=== PATIENT | female | born 1965 | race Caucasian/White ===

== ENCOUNTER 2017-01-24 10:06 | Day surgery (SDC) | payer OTHER ==
[2017-01-23 11:22] VITALS: BMI 20.9
--- NOTE | 2017-01-24 11:07 | RAD ---
CERVICAL SPINE 2 VIEWS FLEXION AND EXTENSION: FINDINGS: The vertebral bodies are normal in height. Disk spaces appear well preserved. I do not appreciate a ny abnormal motion in flexion or extension. IMPRESSION: Unremarkable flexion and extension views. POS: [facility]
--- NOTE | 2017-01-24 11:17 | RAD ---
LUMBAR SPINE SERIES 2 VIEWS: (FLEXION AND EXTENSION) DATE: 01/24/17 HISTORY: Back pain. FINDINGS: Vertebral bodies maintain normal height. There is some osteophytic change without significant disc na rrowing. Limited motion in flexion and extension shows no abnormal changes. IMPRESSION: Minimal arthritic changes of the spine. POS: [facility]
[2017-01-24] MEDS ORDERED: Midazolam HCl 2 mg/2 ml Vial ONE ×2 (11:34→11:42)
[2017-01-24] MEDS ORDERED: Fentanyl 100 MCG/2 ML VIAL ONE ×2 (11:34)
[2017-01-24] MEDS ORDERED: Propofol 500 MG/50 ML VIAL ONE (11:35)
--- NOTE | 2017-01-24 13:40 | MRI ---
MRI OF LUMBAR SPINE PERFORMED WITHOUT CONTRAST ENHANCEMENT: HISTORY: Back pain, left leg pain, and numbness. FINDINGS: Vertebral bodies are normal in height. There are some disk desiccation changes at L2-3, L3-4, and L4 -5 without disk narrowing. There is no significant periaortic adenopathy. There is a T1 and T2 small hyperintense lesion involv ing the mid pole of the left kidney, possibly a hemorrhagic cyst but ultrasound would be recommended for confirmation. It is along the lateral cortex. T12-L1: Unremarkable. L1-2: Unremarkable. L2-3: Unremarkable. L3-4: Unremarkable. L4-5: Some mild facet hypertrophic changes without canal or foraminal stenosis. L5-S1: Unremarkable. IMPRESSION: 1. No evidence of disk herniation, canal, or foraminal stenosis. 2. Approximately 1 cm T! and T2 hyperintense lesion involving the lateral cortex of the mid to upper pole region of the left kidney, probably hemorrhagic cyst. Further characterization with ultrasound would be recommended. POS: [facility]
--- NOTE | 2017-01-24 13:48 | MRI ---
MRI CERVICAL SPINE NONCONTRAST: HISTORY: Neck pain with radiculopathy. FINDINGS: Vertebral body heights and alignment are maintained. Bone marrow signal is within normal limits. C2-3: The central canal and neural foramen are patent. C3-4: Uncovertebral and facet hypertrophy result in moderate right and mild left foraminal stenoses. C4-5: Minimal posterior osteophyte/disk complex is present. There is uncovertebral and facet hypert rophy. The neural foramen remain patent. C5-6: Mild posterior osteophyte/disk complex is present with minimal effacement of the thecal sac. The neural foramina remain patent. C6-7: Posterior osteophyte/disk complex effaces the ventral aspect of the thecal sac. Circumferenti al degenerative changes result in moderate to severe central canal stenosis. There is flattening of the ventral aspect of the spinal cord. No abnormal signal is apparent within the cord. The neural f oramina remain patent. C7-T1: The central canal and neural foramina are patent. IMPRESSION: Multilevel degenerative changes throughout the cervical spine as detailed above. Central canal is mo st severe at the C6-7 level. Foraminal stenosis is most pronounced on the right at the C3-4 level. No evidence of myelomalacia. POS: [facility]
== END 2017-01-24 15:08 | disposition home or self-care (01) ==
LOC: SDC/OP 10:06
PROVIDERS: ATTEND Family Medicine
DX: M54.16 Radiculopathy, lumbar region (principal); M54.2 Cervicalgia; Z88.8 Allergy status to other drugs, medicaments and biological substances
CPT/HCPCS: 72040; 72100; 72141; 72148; J2250; J2704; J3010

== ENCOUNTER 2017-07-25 09:37 | Day surgery (SDC) | payer OTHER ==
[2017-07-24 12:57] VITALS: BMI 20.3
[2017-07-25] MEDS ORDERED: Midazolam HCl 2 mg/2 ml Vial ONE (10:41)
[2017-07-25] MEDS ORDERED: Fentanyl 100 MCG/2 ML VIAL ONE (10:41)
[2017-07-25] MEDS ORDERED: Gadobenate Dimeglumine 529 MG/1 ML (20ML VIAL) ONE (11:36)
--- NOTE | 2017-07-25 12:28 | RAD ---
XRAY OF CERVICAL SPINE COMPLETE WITH OBLIQUES IN FLEXION AND EXTENSION: History Neck pain. COMPARISON: Cervical spine radiograph 01/14/17. FINDINGS: Open mouth odontoid view is normal. No significant listhesis. No translation with flexion or extens ion. No acute fracture or malalignment. Oblique views are normal. IMPRESSION: No acute abnormality. No listhesis. No translation on flexion or extension. POS: [facility]
--- NOTE | 2017-07-25 14:04 | MRI ---
MRI OF THE CERVICAL SPINE WITHOUT AND WITH CONTRAST: COMPARISON: None. History Neck pain with radiculopathy and right shoulder pain. TECHNIQUE: Multiplanar, multisequence MR images were obtained of the cervical spine without and with IV contrast . FINDINGS: Mild generalized disk desiccation is seen. The vertebral bodies and intervertebral disks demonstrate normal height and alignment without fracture or subluxation. The visualized cord demonstrates rasta l signal throughout. The craniocervical junction is unremarkable. No abnormal enhancement is seen o n this exam. The prevertebral and paraspinal soft tissues are unremarkable. C2-3: Unremarkable. C3-4: Unremarkable. C4-5: Unremarkable. C5-6: A small disk-osteophyte complex is seen. No posterior facet arthrosis. No neural foraminal o r central canal stenosis. C6-7: A small disk-osteophyte complex is seen. No posterior facet arthrosis. Mild central canal st enosis. No neural foraminal stenosis. C7-T1: Unremarkable. IMPRESSION: Mild degenerative changes of the lower cervical spine as above. POS: [facility]
--- NOTE | 2017-07-25 14:07 | MRI ---
MRI RIGHT SHOULDER WITH AND WITHOUT CONTRAST: INDICATIONS: Right shoulder pain. Concern for brachial plexus disorder; rule out infection. COMPARISON: None. CONTRAST: MultiHance 12 mL. FINDINGS: No definite enlarged mass is seen within the right axillary region, nor within the visualized aspects of the lateral right subclavicular region causing any compression on the visualized brachial plexus. No definite abnormal signal or abnormal enhancement is noted. No lymphadenopathy is present. Ther e is some mild tendinosis of the supraspinatus. The biceps tendon is located. No paralabral cyst is evident. Degenerative and subchondral cyst-like abnormalities are seen involving the posterior grea ter tuberosity. No muscular atrophy is evident. No abnormal fluid is seen within the subacromial an d subdeltoid bursa. No joint effusion is seen within the glenohumeral joint. IMPRESSION: No abnormality demonstrated. POS: [facility]
== END 2017-07-25 14:10 | disposition home or self-care (01) ==
LOC: SDC/OP 09:37
PROVIDERS: ATTEND Neurological Surgery
DX: M54.12 Radiculopathy, cervical region (principal); Z88.8 Allergy status to other drugs, medicaments and biological substances
CPT/HCPCS: 72052; 72156; A9579; J2250; J3010